=== PATIENT | female | born 1990 | race African-American/Black ===

== ENCOUNTER 2017-07-27 21:01 | Emergency (ER) | payer SELFPAY | END 2017-07-27 21:39 | disposition home or self-care (01) | LOC: ERS 21:01 | DX: J06.9 Acute upper respiratory infection, unspecified (principal); F32.9 Major depressive disorder, single episode, unspecified; F17.210 Nicotine dependence, cigarettes, uncomplicated | CPT/HCPCS: 87081; 87430; 99283 ==

== ENCOUNTER 2018-04-20 11:41 | Outpatient (CLI) | payer OTHER ==
--- NOTE | 2018-04-20 15:23 | ULT ---
PELVIC ULTRASOUND: 04/20/2018 HISTORY: A 27-year-old female undergoing sonographic assessment for viability. Evaluate for ectopic pre gnancy. COMPARISON: None. TECHNIQUE: Multiplanar mckeon-scale sonographic imaging of the pelvis is obtained. The ovaries are assessed with color-flow and spectral analysis. FINDINGS: The uterus measures 9.5 x 5.4 x 1.8 cm. There is an oval fluid collection within the endometrial stripe, measuring 2.2 x 1.1 x 2.2 cm. Its l ocation suggests a gestational sac; however, it does not contain a pole or yolk sac. There is small volume fluid eccentric to this, which likely represents a tiny subchorionic hemorrhage. No free fluid is seen in the pelvis. The right ovary measures 1.8 x 1.6 x 2.7 cm, and the left ovary measures 2.4 x 1.9 x 1.7 cm. Normal blood flow noted without evidence for mass on either side. The presumed gestational sac correlates with a 4-hgzua-5-day gestation. IMPRESSION: Findings suggesting an empty gestational sac, at this size, worrisome for spontaneous ; kianev er, correlation with quantitative beta hCG at this time and in 48 hours is essential. Alternative co nsideration would be a pseudo gestational sac, on the basis of sonographically occult ectopic pregnan cy. CODE T POS: [facility]
== END 2018-04-20 11:42 | disposition home or self-care (01) ==
LOC: BICULT 11:41
PROVIDERS: ATTEND Nurse Practitioner
DX: Z34.91 Encounter for supervision of normal pregnancy, unspecified, first trimester (principal)
CPT/HCPCS: 76856

== ENCOUNTER 2018-05-01 19:37 | Emergency (ER) | payer OTHER ==
[2018-05-01 20:09] LABS: #Basophils 0.1 thou/uL (0.0-0.2); #Eosinphils 0.1 thou/uL (0.0-0.7); #Lymphocytes 2.4 thou/uL (1.20-3.40); #Monocytes 0.4 thou/uL (0.11-0.59); %Basophils 1.1 % (0.0-1.0); %Eosinophils 0.9 % (0.0-10.0); %Lymphocytes 30.4 % (21.0-51.0); %Monocytes 5.4 % (0.0-10.0); %Neutrophils 62.2 % (42.0-75.0); Hemoglobin 13.6 g/dL (12.0-16.0); Mean Corpuscular HGB CONC 34.9 g/dL (32.0-36.0); Mean Corpuscular Hemoglobin 32.2 pg (27.0-31.0); Mean Corpuscular Volume 92.2 fL (78.0-98.0); Mean Platelet Volume 7.8 fL (7.4-10.4); Platelet Count 219 thou/uL (130-400); RBC Distribution Width 11.7 % (11.5-14.5); Red Blood Cell (RBC) Count 4.23 mill/uL (4.20-5.40)
[2018-05-01 20:53] LABS: Bilirubin Negative (Negative); Blood, Urine Moderate (Negative); Clarity CLOUDY (Clear); Glucose, Urine (Dipstick) Negative (Negative); Leukocyte Trace (Negative); Nitrite Negative (Negative); Protein, Urine (Dipstick) Negative (Neg-Trace); Specific Gravity, Urine 1.012 (1.002-1.036); pH, Urine 7.5 (5.0-9.0)
[2018-05-01 20:55] LABS: Bacteria/HPF Rare-Few HPF (None Seen); Hyaline Casts/LPF 4-6 HYALINE CAST LPF (0-3 Hyaline); RBC/HPF 0-3 HPF (0-3)
[2018-05-01 20:56] LABS: Yeast-AUWi Flag 35.3 (0-25.0)
[2018-05-01 21:05] LABS: Yeast-All Forms None Seen HPF (None Seen)
--- NOTE | 2018-05-01 22:18 | ULT ---
PELVIC ULTRASOUND: 05/01/2018 HISTORY: . Vaginal bleeding. Foul odor to discharge. COMPARISON: 04/20/2018 FINDINGS: The uterus measures 8.6 cm x 4.9 cm x 6.1 cm. The previously noted well-defined fluid collection wit hin the endometrial canal on the prior exam is not present on this exam. There is a curvilinear area of fluid, which does not demonstrate configuration for a gestational sac. There is slight heterogen eous also present in the uterus, slightly on the left, in the region of the fluid as well, and there is also increased vascularity in this region. Findings may be related to retained products of concep tion and hemorrhage. There is no gestational sac to suggest a normal appearing intrauterine gestatio n, based on this exam. The ovaries demonstrate a normal sonographic appearance bilaterally, with the right ovary measuring 2 .7 cm x 1.3 cm x 2.1 cm and the left ovary measuring 2.7 cm x 1.4 cm x 1.4 cm. Doppler evaluation of each ovary with spectral analysis demonstrates arterial flow in each ovary. A minimal amount o free fluid is seen in the region of the cul-de-sac. IMPRESSION: 1. The previously noted fluid collection in the endometrial canal on the prior examination is no lennie jimenez visualized. There is a curvilinear area of fluid seen within the endometrial canal, but this hicks s not have the configuration for a gestational sac. There is a slightly heterogeneous area also seen in the region of the endometrial canal, which could be related to retained products of conception an d/or a small amount of hemorrhage within the endometrial canal. Findings are suggestive of a missed . Ectopic cannot be excluded based on sonographic evaluation. 2. Normal appearing bilateral ovaries with arterial flow documented in each ovary. 3. Small amount of free fluid in the cul-de-sac. POS: [facility]
--- NOTE | 2018-05-02 00:11 | HP ---
CHIEF COMPLAINT: Cramping. HISTORY OF PRESENT ILLNESS: A 27-year-old, G3, P2 at approximately 12 weeks gestation who presented to the emergency room for chest and back cramping. She reports that she was seen by Dr. Kimberly Miller at [facility] previously and diagnosed with a missed AB. She was given two rounds of Cytotec, but has not passed products of conception or even had any heavy vaginal bleeding. She denies any other complaints today. REVIEW OF SYSTEMS: Negative for head, eyes, ears, nose, throat, cardiovascular, respiratory, GI, , neuropsych, musculoskeletal, skin, or constitutional symptoms other than mentioned above. PAST MEDICAL HISTORY: None. PAST SURGICAL HISTORY: None. MEDICATIONS: None. ALLERGIES: NO KNOWN DRUG ALLERGIES. SOCIAL HISTORY: Negative for tobacco, alcohol, or drug abuse. FAMILY HISTORY: Noncontributory. PHYSICAL EXAMINATION: VITAL SIGNS: Afebrile, normal vital signs. GENERAL: Awake, alert, in no acute distress. Appears comfortable. CHEST: Nonlabored breathing. ABDOMEN: Soft, nontender to palpation. No guarding or rebound. PELVIC EXAM: Deferred. EXTREMITIES: No edema. LABORATORY: WBC 8.0, hemoglobin 13.6, hematocrit 39.1, and platelets 219,000. HCG 6279. Urine consistent with contamination. IMAGING: Pelvic ultrasound today revealed a curvilinear area of fluid seen within the endometrial canal which is a change from her prior examination showing a well-defined fluid collection within the endometrial canal. Normal-appearing ovaries with flow bilaterally. Small amount of free-fluid in the pelvis. No masses. No adnexal masses seen. Findings suggestive of a missed , but ectopic cannot be excluded. ASSESSMENT AND PLAN: A 27-year-old, G3, P2, with likely missed spontaneous . She has been seen by Dr. Kimberly Miller in the clinic and treated medically. The patient would like to proceed with dilation and curettage. I discussed this with Dr. Miller who is not available until Wednesday. However, the patient has an interview Wednesday and would like it done tomorrow if possible. I have her scheduled for the morning with Dr. Rivera. The patient will return at 8 o'clock for the scheduled procedure. She will be n.p.o. after midnight. Job ID: [id number] [facility]
== END 2018-05-01 23:36 | disposition home or self-care (01) ==
LOC: ERS 19:37
DX: O03.4 Incomplete spontaneous abortion without complication (principal); F31.9 Bipolar disorder, unspecified; Z87.891 Personal history of nicotine dependence
CPT/HCPCS: 36415; 76856; 81003; 81015; 84702; 85025; 86850; 86870; 86900; 86901; 86922

== ENCOUNTER 2018-05-02 08:13 | Day surgery (SDC) | payer OTHER ==
[2018-05-02] MEDS ORDERED: Midazolam HCl 2 mg/2 ml Vial ONE (09:37)
[2018-05-02] MEDS ORDERED: Fentanyl 100 MCG/2 ML VIAL ONE (09:43)
[2018-05-02] MEDS ORDERED: Dexamethasone 20 MG/5 ML VIAL ONE (14:49)
[2018-05-02] MEDS ORDERED: PROPOFOL 200 MG/20 ML VIAL ONE (14:49)
[2018-05-02] MEDS ORDERED: Ondansetron PF 4 MG/2 ML Vial ONE (14:49)
[2018-05-02] MEDS ORDERED: Metoclopramide HCl 10 MG/2 ML VIAL ONE (14:49)
[2018-05-02] MEDS ORDERED: Lidocaine 1% PF 5 ML VIAL ONE (14:49)
--- NOTE | 2018-05-03 01:25 | OP ---
DATE OF PROCEDURE: 05/02/2018 PREOPERATIVE DIAGNOSIS: Missed AB refractory to medical management. POSTOPERATIVE DIAGNOSIS: Missed AB refractory to medical management. PROCEDURE: Suction D and C. ANESTHESIA: General. COMPLICATIONS: None. COUNTS: Correct. CONDITION: Stable to recovery room. ESTIMATED BLOOD LOSS: 100 mL. FINDINGS: Retroflexed uterus with uterine sounded to 10.5 cm. SPECIMENS: Products of conception. DESCRIPTION OF PROCEDURE: Ms. Vivek Ann is a 27-year-old female, who was presented with a missed AB refractory to 2 courses of Cytotec, requesting D and C for completion of this loss. The patient was counseled to the risks and benefits of surgery including the risk of bleeding, infection, damage to bowel or bladder, perforation and potential negative effects to fertility. After obtaining informed consent, the patient was taken to the operating room where she was placed in dorsal lithotomy position in [facility] after being placed under general anesthesia. She was prepared and draped in normal sterile fashion. Attention was placed vaginally with an operative speculum. A single-tooth tenaculum was used to grasp the anterior lip of the cervix. Uterus was sounded to 10.5 cm. Cervix was noted to be dilated already and accommodated a 7-English clear of curette. The suction curette was noted to be at 40 cm of water and with 3 passes, the uterine contents were removed. There was some brisk bleeding initially, which was resolved with bimanual pressure on the uterus. Uterine cry was then felt with a sharp curette and suction curette was then passed one more time. Again, the patient was experiencing some brisk bleeding which was resolved with bimanual pressure on the uterus. Once this was found to be under control, lip of the tenaculum was removed and with some pressure, the tenaculum site was made hemostatic. At this point, the procedure was completed and the patient was taken out of lithotomy position and taken to recovery room in stable condition. Job ID: [id number]
== END 2018-05-02 13:27 | disposition home or self-care (01) ==
LOC: SDC 08:13
PROVIDERS: ATTEND Obstetrics & Gynecology
PROC: 10D17ZZ Extraction of Products of Conception, Retained, Via Natural or Artificial Opening (ICD-10-PCS; principal; 2018-05-02)
DX: O02.1 Missed abortion (principal)
CPT/HCPCS: 88305; J0131; J2250; J3010; J7050

== ENCOUNTER 2018-05-26 15:44 | Emergency (ER) | payer OTHER ==
[2018-05-26 16:36] LABS: Bilirubin Negative (Negative); Blood, Urine Negative (Negative); Clarity CLEAR (Clear); Glucose, Urine (Dipstick) Negative (Negative); Leukocyte Negative (Negative); Nitrite Negative (Negative); Protein, Urine (Dipstick) Negative (Neg-Trace); Specific Gravity, Urine 1.021 (1.002-1.036)
[2018-05-26 17:35] LABS: Pregnancy Test - Urine (BHCG) Negative (Negative); Pregu Control Background? CLEAR/WHITE (CLR/WHITE); Pregu Control Bar Appear? YES (CONTROL BAR); Specific Gravity 1.021 (1.002-1.036)
[2018-05-26] MEDS ORDERED: Ondansetron ODT 8 MG TAB ONE (17:38)
[2018-05-26 17:48] LABS: #Basophils 0.1 thou/uL (0.0-0.2); #Eosinphils 0.2 thou/uL (0.0-0.7); #Lymphocytes 2.3 thou/uL (1.20-3.40); #Monocytes 0.5 thou/uL (0.11-0.59); #Neutrophils 3.9 thou/uL (1.40-6.50); %Basophils 0.9 % (0.0-1.0); %Eosinophils 2.8 % (0.0-10.0); %Lymphocytes 33.2 % (21.0-51.0); %Monocytes 7.1 % (0.0-10.0); %Neutrophils 56.1 % (42.0-75.0); Hemoglobin 12.1 g/dL (12.0-16.0); Mean Corpuscular HGB CONC 32.1 g/dL (32.0-36.0); Mean Corpuscular Hemoglobin 30.2 pg (27.0-31.0); Mean Corpuscular Volume 94.1 fL (78.0-98.0); Mean Platelet Volume 8.1 fL (7.4-10.4); Platelet Count 227 thou/uL (130-400); RBC Distribution Width 12.6 % (11.5-14.5); Red Blood Cell (RBC) Count 4.01 mill/uL (4.20-5.40)
[2018-05-26 18:10] LABS: ALT (SGPT) Less than 7 U/L (8-55); AST (SGOT) 15 U/L (5-34); Albumin 4.1 g/dL (3.5-5.0); Alkaline Phosphatase 64 U/L (40-150); Anion Gap 9 mmol/L (10-20); BUN (Urea Nitrogen) 8 mg/dL (7.0-18.7); Bilirubin, Total 0.4 mg/dL (0.2-1.2); Calc. Creatinine Clearance 0 mL/min (70-130); Calcium 9.1 mg/dL (7.8-10.44); Carbon Dioxide 26 mmol/L (22-29); Chloride 106 mmol/L (98-107); Estimated GFR-MDRD Greater than 90; Globulin 2.9 g/dL (2.4-3.5); Glucose 80 mg/dL (70-105); Lipase 21 U/L (8-78); Potassium 3.8 mmol/L (3.5-5.1); Sodium 137 mmol/L (136-145)
== END 2018-05-26 19:25 | disposition home or self-care (01) ==
LOC: ERS 15:44
DX: R11.2 Nausea with vomiting, unspecified (principal); F31.9 Bipolar disorder, unspecified; Z87.891 Personal history of nicotine dependence
CPT/HCPCS: 36415; 80053; 81003; 81025; 83690; 84702; 85025; 93005

== ENCOUNTER 2018-05-28 17:38 | Emergency (ER) | payer OTHER ==
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
[2018-05-28] MEDS ORDERED: Ibuprofen 800 MG TAB ONE (19:49)
[2018-05-28] MEDS ORDERED: Cyclobenzaprine 10 MG TAB ONE (19:49)
== END 2018-05-28 19:58 | disposition home or self-care (01) ==
LOC: ERS 17:38
DX: R51 Headache (principal); R68.84 Jaw pain; Z87.891 Personal history of nicotine dependence; V49.49XA Driver injured in collision with other motor vehicles in traffic accident, initial encounter
CPT/HCPCS: 70450; 70486

== ENCOUNTER 2018-06-28 19:16 | Emergency (ER) | payer OTHER ==
[2018-06-28 19:44] LABS: #Basophils 0.1 thou/uL (0.0-0.2); #Eosinphils 0.1 thou/uL (0.0-0.7); #Lymphocytes 2.6 thou/uL (1.20-3.40); #Monocytes 0.5 thou/uL (0.11-0.59); #Neutrophils 4.5 thou/uL (1.40-6.50); %Basophils 0.7 % (0.0-1.0); %Eosinophils 0.9 % (0.0-10.0); %Lymphocytes 33.5 % (21.0-51.0); %Monocytes 6.7 % (0.0-10.0); %Neutrophils 58.1 % (42.0-75.0); Hemoglobin 12.8 g/dL (12.0-16.0); Mean Corpuscular HGB CONC 33.6 g/dL (32.0-36.0); Mean Corpuscular Hemoglobin 30.8 pg (27.0-31.0); Mean Corpuscular Volume 91.7 fL (78.0-98.0); Mean Platelet Volume 8.1 fL (7.4-10.4); Platelet Count 212 thou/uL (130-400); RBC Distribution Width 11.8 % (11.5-14.5); Red Blood Cell (RBC) Count 4.16 mill/uL (4.20-5.40); White Blood Cell (WBC) Count 7.7 thou/uL (4.8-10.8)
[2018-06-28] MEDS ORDERED: Ondansetron PF 4 MG/2 ML Vial ONE (19:51)
[2018-06-28 20:01] LABS: Bilirubin Negative (Negative); Blood, Urine Negative (Negative); Clarity CLEAR (Clear); Glucose, Urine (Dipstick) Negative (Negative); Leukocyte Negative (Negative); Nitrite Negative (Negative); Protein, Urine (Dipstick) Negative (Neg-Trace); Specific Gravity, Urine 1.024 (1.002-1.036)
[2018-06-28 20:10] LABS: Pregnancy Test - Urine (BHCG) POSITIVE (Negative); Pregu Control Background? CLEAR/WHITE (CLR/WHITE); Pregu Control Bar Appear? YES (CONTROL BAR); Specific Gravity 1.024 (1.002-1.036)
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
[2018-06-28 20:22] LABS: ALT (SGPT) 10 U/L (8-55); AST (SGOT) 16 U/L (5-34); Albumin 4.1 g/dL (3.5-5.0); Alkaline Phosphatase 67 U/L (40-150); Anion Gap 12 mmol/L (10-20); BUN (Urea Nitrogen) 10 mg/dL (7.0-18.7); Bilirubin, Total 0.3 mg/dL (0.2-1.2); Calc. Creatinine Clearance 0 mL/min (70-130); Calcium 9.1 mg/dL (7.8-10.44); Carbon Dioxide 23 mmol/L (22-29); Chloride 107 mmol/L (98-107); Estimated GFR-MDRD Greater than 90; Globulin 2.9 g/dL (2.4-3.5); Glucose 80 mg/dL (70-105); Potassium 3.3 mmol/L (3.5-5.1); Sodium 139 mmol/L (136-145)
--- NOTE | 2018-06-28 21:25 | ULT ---
ULTRASOUND PELVIC TRANSVAGINAL 06/28/18 HISTORY: Pelvic pain. COMPARISON: Ultrasound 05/01/18. FINDINGS: Trace free fluid around the left ovary. Uterus measures 7.9 x 4.9 x 5.1 cm with endometrial thicknes s of 7 mm. No intrauterine . Right ovary measures 2.5 x 2.1 x 1.4 cm. Left ovary measures 3.5 x 2.4 x 2.2 cm. Left ovarian cyst is present measuring up to 1.8 cm. IMPRESSION: of unknown location. HCG is 1279, lower than would be expected for intrauterine t o be visualized. Close followup HCG and ultrasound is recommended. POS: [facility]
[2018-06-28] MEDS ORDERED: cefTRIAXone\\ROCEPHIN 250 MG VIAL ONE (23:08)
[2018-06-28] MEDS ORDERED: Azithromycin 250 MG TAB ONE (23:08)
[2018-06-28] MEDS ORDERED: Lidocaine 1% PF 5 ML VIAL ONE (23:08)
[2018-07-01 21:02] LABS: Chlamydia by PCR Not Detected (NotDetected); GC by PCR Not Detected (NotDetected)
== END 2018-06-28 23:38 | disposition home or self-care (01) ==
LOC: ERS 19:16
DX: O20.9 Hemorrhage in early pregnancy, unspecified (principal); O99.341 Other mental disorders complicating pregnancy, first trimester; F31.9 Bipolar disorder, unspecified; Z87.891 Personal history of nicotine dependence
CPT/HCPCS: 36415; 71045; 76856; 80053; 81003; 81025; 83605; 84702; 85025; 87040; 87086; 87480; 87491; 87510; 87591; 87660; 96361; 96372; 96374; J0696; J2001; J2405

== ENCOUNTER 2018-11-14 17:57 | Day surgery (SDC) | payer OTHER ==
[2018-11-14 18:58] VITALS: BMI 25.6
[2018-11-14 19:00] VITALS: BP 94/55; TEMP 98.1
[2018-11-14] MEDS ORDERED: hydrALAZINE 20 MG/ML VIAL SLOW IVP PRN (19:41)
--- NOTE | 2018-11-14 20:40 | PDOC.LDHP ---
Labor and Delivery H&P Chief complaint: other (Headache & Right Hip Pain) HPI: Mrs. Shah is a at 24.2W GA dated by 1st trimester US who presents to L &D for evaluation of headache and right-sided hip pain. The patient states that she has a history of migraines prior to this and that her headaches are becoming troublesome, occurring several times per week and associated with a sharp, throbbing pain behind her eyes as well as in her occipital region. She takes acetaminophen occasionally with sporadic relief, but denies and blurred vision, loss of vision, aura, ataxia, falls, chest pain, SOB, or lower extremity edema. With regard to her right-sided hip pain, Mrs. Shah states that she has had increasing soreness and finds that she sometimes has numbness and tingling down her buttock to her right thigh. 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 She denies any recent trauma or falls, changes in bowel or bladder function, and unusual bruising or petechiae. Current gestational age (weeks): 24 (2W) Due date: 03/04/19 Dating criteria: first trimester ultrasound Grav: 4 Para: 2 (012) OB History Details: Mrs. Shah reports no significant problems during this , stating that she has been gaining weight appropriately, has not been particularly nauseous, has had no STIs or traumatic accidents, and without any additional symptoms such as chest pain, SOB, or changes in vision. She has been receiving consistent care throughout her for Dr. Bocanegra at [facility], and feels comfortable at this time. It should be noted that Mrs. Shah had one end in requiring D&C, although she is unsure of the cause other than "the baby wasn't growing right". Current complications: none Abnormal US findings: No Past Medical History: Migraines Current medications: pre-piter vitamins Previous surgical history: none Allergies/Adverse Reactions: Allergies Allergy/AdvReac Type Severity Reaction Status Date / Time No Allergy Information Allergy Unverified 05/02/18 09:45 Available Social history: none - Physical Exam Vital signs reviewed and normal: yes General: NAD, resting Heart: RRR Lungs: nonlabored breathing Abdomen: gravid Extremeties: no edema FHT: category 1 - OB Labs Blood type: A RH: negative Antibody Screen: unknown HIV: negative RPR: negative HEPSAg: negative GBS: unknown Urine drug screen: not done - Assessment Migraine Headaches with Right-Sided M/S Hip Pain - Plan Plan: observation in L&D -: 1. Migraine Headaches -Mrs. Shah has a history of migraines prior to this , and her current presentation is most likely of similar etiology -Mrs. Shah was advised to continue taking acetaminophen PRN, as well as ensure adequate hydration -Mrs. shah was further advised to seek follow-up with her PCP if her headaches became unbearable or were associated with changes in vision, intense abdominal pain, or swelling of the extremities. 2. Right-Sided Hip Pain -Mrs. Shah has previously been evaluated for this condition in the past, with minimal significant findings -Due to the developing and Mrs. Shah's occupation, her current presentation is most likely of M/S etiology -Mrs. Shah was encouraged to avoid standing for long periods of time and stretch when able Dispo: DC with appropriate follow-up with her PCP.
== END 2018-11-14 20:30 | disposition home or self-care (01) ==
LOC: L&D/OP 17:57
PROVIDERS: ATTEND Family Medicine
DX: O99.352 Diseases of the nervous system complicating pregnancy, second trimester (principal); G43.909 Migraine, unspecified, not intractable, without status migrainosus; O99.89 Other specified diseases and conditions complicating pregnancy, childbirth and the puerperium; M25.551 Pain in right hip; Z3A.24 24 weeks gestation of pregnancy
CPT/HCPCS: 99282

== ENCOUNTER 2019-02-25 03:36 | Inpatient (IN) | payer OTHER ==
[2019-02-25] MEDS ORDERED: Penicillin G Potassium 5 MILL.UNITS VIAL ONE (03:55)
[2019-02-25 04:08] VITALS: BMI 28.3
[2019-02-25] MEDS ORDERED: Ondansetron PF 4 MG/2 ML Vial IVP PRN ×2 (04:16→05:15)
[2019-02-25] MEDS ORDERED: Acetaminophen 500 MG TAB PO PRN (04:16)
[2019-02-25] MEDS ORDERED: hydrALAZINE 20 MG/ML VIAL SLOW IVP PRN ×2 (04:16→09:38)
[2019-02-25] MEDS ORDERED: Promethazine HCl 25 MG/ML VIAL IM PRN ×2 (04:16→05:15)
[2019-02-25] MEDS ORDERED: Misoprostol 200 MCG TAB PR PRN (04:16)
[2019-02-25] MEDS ORDERED: Carboprost 250 MCG/ML AMP IM PRN (04:16)
[2019-02-25] MEDS ORDERED: Lidocaine 1% (PF) 30 ML VIAL SC PRN (04:16)
[2019-02-25] MEDS ORDERED: Methylergonovine 0.2 MG/ML VIAL IM PRN (04:16)
[2019-02-25] MEDS ORDERED: Butorphanol Tartrate 1 MG/ML VIAL SLOW IVP PRN (04:16)
--- NOTE | 2019-02-25 04:23 | PDOC.FPROB ---
FMR OB H&P: HPI - History of Present Illness Chief Complaint: Contractions Indentification: 28yo @ 39wk by 6.3 wk sono History of Present Illness: 28yo AA @ 39wk by 6.3 wk sono presents for recurrent contractions. States sudden onset of contractions at about midnight that have increased in intensity and frequency, unsure of exact timing. Denies any LOF. Small amount of vaginal spotting. Endorses good movement. No dysuria, CP, SOB, n/v. Breathing through contractions. Requesting epidural. Primary Care Physician: DARIAN Lopez FMR OB H&P: Current - Care : 4 Para: 2011 Gestational age: 39.0 Due date: 03/04/19 Dating Criteria: 6.3 week sono - OB Labs Blood type: A RH: negative Antibody Screen: negative HIV: negative RPR: negative HepBsAg: negative Rubella: immune Quad screen: unknown Urine drug screen: negative Gonorrhea: negative Chlamydia: negative Pap Smear: NILM 1 hour gtt: 90 GBS: negative H&H: 10.9/31.9 Platelets: 208 Additional labs: Sickle Cell negative 12/12/18 at 28.2 weeks got Rhogam - First Trimester Ultrasound First trimester: 6.3 week sono. FLORENCIO not c/w LMP. FLORENCIO updated. Left ovarian cyst noted. F/u u/s showed resolution - Anatomy Survey Anatomy survey: 26.3 week anatomy scan. Grossly normal anatomy scan. Hadlock 24.3% - Additional Ultrasound Additional: 33.3 week growth sono- Hadlock 56%, Fundal placenta. FMR OB H&P: History - Past Medical History PMH: Depression, GERD - OB History OB History: PPH in prior (2012) required transfusion SVDx2 @ 37 and 38 weeks Anemia of - [employer] History [employer] History: No abnormal paps reported. NILM pap performed at begining of this . - Surgical History Sx History: None - Social History Social History: Denies any recent smoking, alcohol or illicit drug use. Previous tob use during - Family History Family History: Noncontributory. FMR OB H&P: Medications - Current Home Medications: Medication Instructions Recorded Confirmed Type No Known 02/25/19 02/25/19 History Allergies/Adverse Reactions: Allergies Allergy/AdvReac Type Severity Reaction Status Date / Time No Allergy Information Allergy Unverified 05/02/18 09:45 Available FMR OB H&P: ROS - Review of Systems General: denies: fever/chills, weight/appetite/sleep changes Eyes: denies: vision changes, double vision, scotomas ENT: denies: nasal congestion, rhinorrhea, sore throat Cardiovascular: denies: chest pain, palpitation, edema Respiratory: denies: cough, congestion, shortness of breath Gastrointestinal: denies: abdominal pain, nausea, vomiting, diarrhea, constipation Genitourinary (Female): reports: vaginal bleeding (light spotting), contractions (painful and regular), vaginal pressure. denies: dysuria Neurologic: denies: numbness, syncope, seizures Integumentary: denies: rash, lesions FMR OB H&P: Vital Signs - Maternal Vital signs: BP 102/69, O2 94% on RA, HR 92 - Heart Tones Baseline: 140 Variability: moderate Acceleration: present Deceleration: absent Category: category 1 [place] contractions every: 5 minutes FMR OB H&P: Physical Exam - Physical Exam General: NAD, awake, alert and oriented, other (breathing through painful contractions) HEENT: EOMI, MMM, conjunctiva clear Neck: supple, trachea midline Heart: RRR, normal S1/S2, no murmurs/rubs/gallops, pulses present, no edema General: CTAB, no respiratory distress, good air movement, no rales/rhonchi, no wheezing Abdomen: soft, gravid, non-tender, bowel sound present Musculoskeletal: normal gait and station Skin: no rash, good tugor Lymphatic: no unusual bruising or bleeding Psychiatric: intact recent and remote memory, good judgement and insight, normal mood and affect - Pelvic Exam SVE: Membranes: intact FMR OB H&P: A/P - Problem List (1) Active labor at term Current Visit: Yes Status: Acute Code(s): [id number] - Disposition: 28yo @ 39wk by 6.3 wk sono presents with painful contractions found to be in active labor. 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 Cont to monitor FHT. Discussion: Date/Time: 02/25/19 6201 This H&P was discussed with Dr. Alcantar and Dr. Lea who agree with the above documentation and plan. Addendum - Attending - Attending Attestation Date/Time: 02/25/19 1022 I personally evaluated the patient and discussed the management with Dr. Kevin Don I agree with the History, Examination, Assessment and Plan documented above with any addition or exceptions noted below - 28 yo @39 weeks presented c/o ctx. Denies any LOF, VB (+) FM. Afebrile VSS. SVE /-1 Cat 1 FHTs. A/P: 1) IUP@39 weeks in active labor. Admit to L&D; anticipate .
[2019-02-25] MEDS ORDERED: Fentanyl 4 mcg/Bup 0.1% Cadd 100 ML ONE (04:25)
[2019-02-25] MEDS ORDERED: Misoprostol 200 MCG TAB ONE (04:26)
[2019-02-25 04:28] LABS: Hemoglobin 12.2 g/dL (12.0-16.0); Mean Corpuscular HGB CONC 35.9 g/dL (32.0-36.0); Mean Corpuscular Hemoglobin 32.6 pg (27.0-31.0); Mean Corpuscular Volume 90.6 fL (78.0-98.0); Mean Platelet Volume 8.7 fL (7.4-10.4); Platelet Count 195 thou/uL (130-400); RBC Distribution Width 12.1 % (11.5-14.5); Red Blood Cell (RBC) Count 3.74 mill/uL (4.20-5.40); White Blood Cell (WBC) Count 10.3 thou/uL (4.8-10.8)
[2019-02-25] MEDS: Lactated Ringer's 1,000 ML IV SCH ×2 (04:45→06:01)
[2019-02-25 05:06] LABS: HBSAg Index 0.15 S/CO (0-0.99); Hep B Surf Ag Non-Reactive S/CO (NonReactive)
[2019-02-25] MEDS ORDERED: Lactated Ringer's 500 ML IV PRN (05:15)
[2019-02-25] MEDS ORDERED: Communication Order-Pharmacy FS SCH (05:15)
[2019-02-25] MEDS ORDERED: Fentanyl 4 mcg/Bupivacaine 0.1% Cassette 100 ML EPIDURAL SCH (05:15)
[2019-02-25] MEDS ORDERED: diphenhydrAMINE 50 MG/ML VIAL IVP PRN (05:15)
[2019-02-25] MEDS ORDERED: Acetaminophen 325 MG TAB PO PRN (05:15)
[2019-02-25] MEDS ORDERED: Naloxone HCl 0.4 mg/ml Vial IVP PRN ×2 (05:15)
[2019-02-25] MEDS ORDERED: ePHEDrine/0.9% NaCl/PF SYRINGE 50 mg/10 ml SLOW IVP PRN (05:15)
--- NOTE | 2019-02-25 05:57 | PDOC.LDPN ---
Labor & Delivery Progress Note - Subjective Subjective: comfortable, vaginal pressure, no concerns - Objective Vital signs reviewed and normal: yes General: NAD, resting, breathing through contractions (resting more comfortably with epidural in place) Uterine fundus: non tender SVE: 0555 Dilation: 7 Effacement: 90% Station: -1 FHT: category 1 (accels, no deccels, baseline 150), variability present ( moderate) Whigham contractions every: 2-3 minutes Other exam findings: SROM - clear fluid - Assessment (1) Active labor at term Code(s): [id number] - Current Visit: Yes Status: Acute Plan: continue plan of care -: 28yo @ 39wk by 6.3 wk sono presents with painful contractions found to be in active labor. #Active labor - @ 39wk by 6.3wk sono - 0555 check of /-1, SROM - Cat 1 strip with contractions every 2-3 minutes - Epidural in place - Will manage expectantly with close monitoring - cont to monitor FHT #Previous complicated by PPH - Will monitor closely post- - PPH medications ready at delivery #Tob use during - States has quit smoking PCP: Daljit - D[facility]IAN IVF: LR @ 125cc/hr Diet: NPO with ice chips Dispo: Admitted to L&D for active labor, currently managing expectantly, epidural in place, progressing with regular contractions. Cont to monitor FHT.
[2019-02-25 05:58] LABS: Syphilis Antibody Nonreactive (Nonreactive); Syphilis Antibody Index 0.06 S/CO (<1.00 Non-Reactive)
[2019-02-25] MEDS ORDERED: Methylergonovine 0.2 MG/ML VIAL ONE (07:01)
[2019-02-25] MEDS: NS / Oxytocin 40 units/1000ml 1,000 ML IV PRN ×2 (07:16→08:58)
--- NOTE | 2019-02-25 07:37 | PDOC.OPDEL ---
OB Operative/Delivery Note Delivery Dr/Surgeon: Sheng Bocanegra Lichorad Pre-Delivery Diagnosis: active labor Procedure/Post Delivery Dx: spontaneous vaginal delivery Weeks gestation: 39 (39.0) Anesthesia: epidural - Additional Findings/Plan Placenta delivered: spontaneous Repaired Obstetrical Laceration: left labial Estimated blood loss: 50 Compilations/Other Findings: Delivering Physician: Grace Bocanegra MD, Neal Don MD Attending: Leena Lea MD Procedure: Term spontaneous vaginal delivery Anesthesia: Epidural QBL: 50cc Pre-op Diagnosis: 1. Term intrauterine in labor 2. Rh negative s/p Rhogam 3. Previous tobacco use in 4. Hx of PPH Post-op Diagnosis: 1. Term intrauterine , delivered 2. same as above 3. same as above 4. same as above Indications: A 28 y/o female [id number] now presented in active labor. Delivery Note: This is 28yo F now @39.0wks who delivered a viable F on 02/15 @ 0815. A vigorous F was delivered over an intact perineum in the occipitoanterior position. Baby restititued in the occipitoleft position. Foot cord x1 which was reduced. The head was held down and mouth and nares were bulb suctioned and baby stimulated. Cord clamped and cut and cord blood collected. Placenta delivered intact via Veloz presentation with a 3 vessel cord noted. Fundal massage was performed and the fundus was firm. The cervix and vagina were inspected and a left labial tear was discovered which was hemostatic. Apgars were 8/9 at 1 & 5 minutes, respectively. Patient tolerated delivery well and went to after routine recovery/care. Post delivery plan: routine recovery Addendum - Attending - Attending Attestation Date/Time: 02/25/19 1026 I was present, assisted, and supervised the of a viable female infant over an intact perineum to this 28 yo @ 39 weeks. Apgars 8/9. Placenta delivered spontaneously and intact. 3 V cord. No epis or lacs. QBL = 50mL. Infant and mother in stable condition. Residents: Daljit/Kevin Don
[2019-02-25] MEDS ORDERED: Milk Of Magnesia 30 ML UDCUP PO PRN (09:38)
[2019-02-25] MEDS ORDERED: Adacel (T-DAP) 0.5 ML SYRINGE IM ONE (09:38)
[2019-02-25] MEDS ORDERED: Bisacodyl 10 MG SUPP PR PRN (09:38)
[2019-02-25] MEDS ORDERED: NS / Oxytocin 40 units/1000ml 1,000 ML IV SCH (09:38)
[2019-02-25] MEDS: Docusate Calcium (SURFAK) 240 MG CAP PO SCH ×2 (11:39→21:15)
[2019-02-25] MEDS: Ibuprofen 800 MG TAB PO PRN ×2 (12:00→21:15)
[2019-02-25] MEDS: Ferrous Sulfate 325 MG TAB PO SCH (17:39)
[2019-02-25] MEDS ORDERED: FLU VACC QS2019-20(6MOS UP)/PF 60 MCG/0.5 ML SYRINGE IM ONE (21:00)
[2019-02-26 04:37] LABS: Hemoglobin 11.3 g/dL (12.0-16.0)
--- NOTE | 2019-02-26 05:20 | PDOC.PP ---
Post Progress Note Post Day #: 1 Subjective: Patient doing well, some uterine cramping. No concerns otherwise, ready to go home PO intake tolerated: yes Flatus: yes Ambulation: yes Vital Signs (12 hours) Temp Pulse Resp BP Pulse Ox 02/26/19 01:00 97.6 F 87 18 96/56 L 97 02/25/19 21:00 98.2 F 84 18 98/57 L 97 02/25/19 17:53 97.9 F 79 18 100/61 Weight Weight 70.307 kg - Physical Examination General: NAD Cardiovascular: no m/r/g, RRR Respiratory: non-labored breathing Abdominal: + bowel sounds Fundus firm & at: below umbilicus Psychiatric: A&Ox3, normal affect Result Diagrams: 02/26/19 04:18 Additional Labs: Post Labs Blood Type A NEGATIVE 02/25/19 04:13 Hep Bs Antigen Non-Reactive S/CO (NonReactive) 02/25/19 04:13 (1) , delivered Code(s): O80 - ENCOUNTER FOR FULL-TERM UNCOMPLICATED DELIVERY Status: Acute (2) Anemia Code(s): D64.9 - ANEMIA, UNSPECIFIED Status: Acute - Assessment/Plan S/P Term VD, Day 1 -Bottle feeding, going well -Plans for IUD, will set up referral in clinic @ two week visit Anemia -Continue oral iron, sent rx -Pt clinically stable Dispo: D/c today pending baby bilirubin Addendum - Attending - Attending Attestation Date/Time: 02/26/19 0946 I personally evaluated the patient and discussed the management with Dr. Bocanegra I agree with the History, Examination, Assessment and Plan documented above with any addition or exceptions noted below- Patient without complaints. Ambulating/voiding. Afebrile VSS. A/P: 1) PPD#1 s/p - doing well. Plan to d/ c home today.
[2019-02-26] MEDS: Ibuprofen 800 MG TAB PO PRN (06:50)
[2019-02-26 08:26] VITALS: BP 93/50; TEMP 98
[2019-02-26] MEDS: Ferrous Sulfate 325 MG TAB PO SCH (09:13)
[2019-02-26] MEDS: Docusate Calcium (SURFAK) 240 MG CAP PO SCH (09:15)
== END 2019-02-26 13:31 | disposition home or self-care (01) | DRG 807 ==
LOC: L&D/OP 03:36 → L&D 04:35 → 3SW 09:45
PROVIDERS: ADMIT Family Medicine; ATTEND Family Medicine
PROC: 10E0XZZ Delivery of Products of Conception, External Approach (ICD-10-PCS; principal; 2019-02-25)
PROC: 10907ZC Drainage of Amniotic Fluid, Therapeutic from Products of Conception, Via Natural or Artificial Opening (ICD-10-PCS; 2019-02-25)
PROC: 3E033VJ Introduction of Other Hormone into Peripheral Vein, Percutaneous Approach (ICD-10-PCS; 2019-02-25)
PROC: 3E0P7VZ Introduction of Hormone into Female Reproductive, Via Natural or Artificial Opening (ICD-10-PCS; 2019-02-25)
DX: O99.344 Other mental disorders complicating childbirth (principal); Z37.0 Single live birth; F32.9 Major depressive disorder, single episode, unspecified; O99.62 Diseases of the digestive system complicating childbirth; O34.83 Maternal care for other abnormalities of pelvic organs, third trimester; N83.202 Unspecified ovarian cyst, left side; O99.02 Anemia complicating childbirth; D64.9 Anemia, unspecified; O99.334 Smoking (tobacco) complicating childbirth; F17.210 Nicotine dependence, cigarettes, uncomplicated; O70.0 First degree perineal laceration during delivery; Z3A.39 39 weeks gestation of pregnancy; K21.9 Gastro-esophageal reflux disease without esophagitis; Z28.21 Immunization not carried out because of patient refusal
CPT/HCPCS: 36415; 51702; 85014; 85018; 85027; 86780; 86850; 86900; 86901; 87340; 99285; J2210; J2540